=== PATIENT | female | born 1955 | race American Indian/Alaskan Native ===

== ENCOUNTER 2021-11-24 05:27 | Emergency (ER) | payer OTHER ==
[2021-11-24] MEDS ORDERED: IBUPROFEN 800 MG TAB PO ONE (10:54)
--- NOTE | 2021-11-24 11:22 | XRay Report ---
XR foot 2V RT INDICATION / CLINICAL INFORMATION: pain. COMPARISON: None available. FINDINGS: BONES/JOINT(S): No acute fracture or subluxation. 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 No focal bone eros ions or focal osteopenia to suggest inflammatory arthropathy. SOFT TISSUES: No significant abnormality. ADDITIONAL FINDINGS: None. Signer Name: oFrd Preciado MD Signed: 11/24/2021 11:17 AM Workstation Name: [id number]
--- NOTE | 2021-11-24 11:48 | Emergency Department Report ---
ED Lower Extremity HPI - General Chief Complaint: Pain General Stated Complaint: RT FOOT PAIN Time Seen by Provider: 11/24/21 10:39 Source: patient Mode of arrival: Ambulatory Limitations: No Limitations - Related Data Previous Rx's Medication Instructions Recorded Last Taken Type Ibuprofen [Motrin] 800 mg PO Q8HR PRN #30 tablet 11/24/21 Unknown Rx predniSONE [Deltasone] 20 mg PO DAILY #5 tablet 11/24/21 Unknown Rx Allergies Allergy/AdvReac Type Severity Reaction Status Date / Time Penicillins Allergy Swelling Verified 11/24/21 06:08 ED Review of Systems ROS: Stated complaint: RT FOOT PAIN Other details as noted in HPI Comment: All other systems reviewed and negative ED Past Medical Hx - Past Medical History Previous Medical History?: No - Surgical History Hx Appendectomy: No - Family History Family history: no significant - Social History Smoking Status: Never Smoker Substance Use Type: None - Medications Home Medications: Home Medications Medication Instructions Recorded Confirmed Last Taken Type Ibuprofen [Motrin] 800 mg PO Q8HR PRN #30 tablet 11/24/21 Unknown Rx predniSONE [Deltasone] 20 mg PO DAILY #5 tablet 11/24/21 Unknown Rx ED Physical Exam - General Limitations: No Limitations General appearance: alert, in no apparent distress - Head Head exam: Present: atraumatic, normocephalic - Eye Eye exam: Present: normal appearance - ENT ENT exam: Present: mucous membranes moist - Neck Neck exam: Present: normal inspection - Respiratory Respiratory exam: Present: normal lung sounds bilaterally. Absent: respiratory distress - Cardiovascular Cardiovascular Exam: Present: regular rate, normal rhythm. Absent: systolic murmur, diastolic murmur, rubs, gallop - GI/Abdominal GI/Abdominal exam: Present: soft, normal bowel sounds - Extremities Exam Extremities exam: Present: normal inspection - Back Exam Back exam: Present: normal inspection - Neurological Exam Neurological exam: Present: alert, oriented X3 - Psychiatric Psychiatric exam: Present: normal affect, normal mood - Skin Skin exam: Present: warm, dry, intact, normal color. Absent: rash ED Course Vital Signs 11/24/21 06:04 Temperature 98.0 F Pulse Rate 65 Respiratory 18 Rate Blood Pressure 148/72 [Left] O2 Sat by Pulse 98 Oximetry ED Lower Extremity MDM - Radiology Data Radiology results: report reviewed, image reviewed Critical care attestation.: If time is entered above; I have spent that time in minutes in the direct care of this critically ill patient, excluding procedure time. ED Disposition Clinical Impression: Arthritis, Foot pain Disposition: 01 HOME / SELF CARE / HOMELESS Is pt being admited?: No Does the pt Need Aspirin: No Condition: Stable Instructions: Arthritis Additional Instructions: MEDS ORDERED TODAY FOLLOW UP WITH PCP AND ORTHO MD REFERRALS BELOW STAY WELL HYDRATED WITH WATER Referrals: GRISELDA QUEZADA MD [Primary Care Provider] - 3-5 Days BRITTNY FLEMING MD [Staff Physician] - 3-5 Days Time of Disposition: 11:55
[2021-11-24 12:16] VITALS: BP 140/68
== END 2021-11-24 12:16 | disposition home or self-care (01) ==
LOC: ED 05:27
DX: M19.90 Unspecified osteoarthritis, unspecified site (principal); M79.671 Pain in right foot; Z88.0 Allergy status to penicillin; Z79.899 Other long term (current) drug therapy
CPT/HCPCS: 99283